=== PATIENT | female | born 1970 | race Caucasian/White ===

== ENCOUNTER 2023-05-01 11:36 | Emergency (ER) | payer BC, OTHER ==
[2023-05-01 12:19] LABS: #Basophils 0.1 10x3/uL (0.0-0.2); #Eosinphils 0.3 10x3/uL (0.0-0.5); #Monocytes 0.5 10x3/uL (0.0-1.1); #Neutrophils 3.5 10x3/uL (1.5-8.4); %Basophils 0.8 % (0.0-2.0); %Eosinophils 4.4 % (0.0-6.0); %Monocytes 7.6 % (0.0-10.0); Hematocrit 44.9 % (34.9-44.5); Hemoglobin 14.5 g/dL (12.0-15.5); Mean Corpuscular HGB CONC 32.3 g/dL (32.0-36.0); Mean Corpuscular Hemoglobin 27.4 pg (27.0-33.0); Mean Corpuscular Volume 84.7 fl (81.6-98.3); Mean Platelet Volume 10.1 fl (7.4-10.4); Platelet Count 231 10x3/uL (150-450); RBC Distribution Width 16.9 % (11.5-14.5); White Blood Cell (WBC) Count 5.9 10x3/uL (3.5-10.5)
[2023-05-01 12:29] LABS: ALT (SGPT) 11 U/L (8-55); AST (SGOT) 16 U/L (5-34); Albumin 4.7 g/dL (3.5-5.0); Alkaline Phosphatase 45 U/L (40-110); Anion Gap 14 mmol/L (10-20); BUN (Urea Nitrogen) 11 mg/dL (9.8-20.1); Bilirubin, Total 0.3 mg/dL (0.2-1.2); Calc. Creatinine Clearance 0 mL/min (70-130); Calcium 9.7 mg/dL (7.8-10.44); Carbon Dioxide 25 mmol/L (22-29); Chloride 104 mmol/L (98-107); Estimated GFR 89; Globulin 2.6 g/dL (2.4-3.5); Glucose 102 mg/dL (70-105); Lipase 33 U/L (8-78); Potassium 4.1 mmol/L (3.5-5.1); Protein, Total 7.3 g/dL (6.0-8.3); Sodium 139 mmol/L (136-145)
[2023-05-01 12:32] LABS: Troponin I Less than 0.010 ng/mL (< 0.028)
[2023-05-01] MEDS ORDERED: Aspirin Chewable 81 MG TAB ONE (13:00)
[2023-05-01] MEDS ORDERED: Mag-Al Plus 1200 MG/1200 MG/120 MG/30 ML UDCUP ONE (13:01)
[2023-05-01] MEDS ORDERED: Famotidine/PF 20 mg/2ml Vial ONE (13:02)
== END 2023-05-01 13:34 | disposition home or self-care (01) ==
LOC: CSHERS 11:36
DX: R07.89 Other chest pain (principal)
CPT/HCPCS: 36415; 71045; 80053; 83690; 84484; 85025; 85379; 93005; 94760; 96374; S0028

== ENCOUNTER 2025-06-09 13:01 | Outpatient (CLI) | payer OTHER | END 2025-06-09 13:02 | disposition home or self-care (01) | LOC: CSHULT 13:01 | PROVIDERS: ATTEND Nurse Practitioner Women's Health | DX: N81.2 Incomplete uterovaginal prolapse (principal); D25.9 Leiomyoma of uterus, unspecified | CPT/HCPCS: 76856 ==

== ENCOUNTER 2025-07-15 15:14 | Emergency (ER) | payer OTHER ==
[2025-07-15] MEDS ORDERED: Prochlorperazine 10 MG/2 ML VIAL ONE (16:30)
[2025-07-15] MEDS ORDERED: Ketorolac Tromethamine 30 MG (1 mL) VIAL ONE (16:30)
[2025-07-15] MEDS ORDERED: diphenhydrAMINE 50 MG/ML VIAL ONE (16:32)
[2025-07-15 17:55] LABS: Glucose, Urine (Dipstick) Unable to Interpret mg/dL (Negative); Leukocyte Unable to Interpret (Negative); Protein, Urine (Dipstick) Unable to Interpret mg/dl (Neg-Trace)
[2025-07-15 17:56] LABS: Bacteria/HPF Rare-Few HPF (None Seen); CAUTI Indications for Culture Pelvic or flank pain; WBC/HPF 0-3 HPF (0-3)
[2025-07-15 17:57] LABS: Urine Culture Reflex No No
== END 2025-07-15 18:18 | disposition home or self-care (01) ==
LOC: CSHERS 15:14
DX: G89.18 Other acute postprocedural pain (principal); G43.909 Migraine, unspecified, not intractable, without status migrainosus
CPT/HCPCS: 81001; 96365; 96375; J0780; J1200; J1885

== ENCOUNTER 2025-07-28 10:16 | Outpatient (CLI) | payer OTHER | END 2025-07-28 10:17 | disposition home or self-care (01) | LOC: CSHMAMMO 10:16 | PROVIDERS: ATTEND Obstetrics & Gynecology | DX: Z12.31 Encounter for screening mammogram for malignant neoplasm of breast (principal); R92.333 Mammographic heterogeneous density, bilateral breasts | CPT/HCPCS: 77063; 77067 ==